=== PATIENT | female | born 1990 | race Caucasian/White ===

== ENCOUNTER → 2021-11-16 14:28 | Outpatient (CLI) | payer OTHER, MEDICAID, SELFPAY ==
--- NOTE | 2021-11-16 14:35 | DI.US.S_ITS ---
PROCEDURE: US OB <= 14 WEEKS FETUS INDICATIONS: INITIAL VIABILTY DATING OUTSIDE/PRIOR DATING DATA: Last menstrual period (LMP): 08/30/2021 LMP-based estimated date of delivery (JEFF): 06/06/2022. First dating scan (date and location): 11/16/2021. Estimated date of delivery (JEFF) from first dating scan: 07/09/2022. The calculations are made using the ultrasound JEFF of 07/09/2022. TECHNIQUE: Real-time scanning was performed of the fetus and maternal pelvic organs, with image documentation. Endovaginal scanning was also performed to better visualize the fetus and maternal ovaries. COMPARISON: None. FINDINGS: Embryo: Lynndyl-rump length measures 0.6 cm corresponding to 6 weeks 3 days. Small perigestational sac bleed site measuring 0.6 x 0.5 x 0.5 cm Heart rate: 119 beats per minute. Maternal organs: Ovaries within normal limits, with right corpus luteal cyst. IMPRESSION: 6 week 3 day single living IUP and small perigestational sac bleed site. We strive to produce accurate, complete, and clear reports of imaging services. To assist us in improving patient care, this report was composed using standard report templates and voice recognition software. Therefore, it may contain abnormal punctuation, insertions and/or omissions. Occasional wrong-word or sound-alike substitutions may occur. Though we review the report and make efforts to correct it, we do recommend that the report be read carefully in proper context to recognize any text inaccuracies. Dictated by: Foreign ROBERTO Interpreted: Sadi Field MD on 11/16/2021 at 15:45 Transcribed by: KAI on 11/16/2021 at 15:46 Approved by: Sadi Field M.D. on 11/16/2021 at 17:31
[2021-11-16 16:48] LABS: Add Manual Diff / Slide Review NO; Basophils Absolute Auto 0 /uL (0-100); Basophils Percent Auto 0.4 % (0-2); Eosinophils Absolute Auto 100 /uL (0-450); Hemoglobin 13.5 g/dL (12.0-16.0); Lymphocytes Absolute Auto 2100 /uL (1100-4500); Lymphocytes Percent Auto 20.8 % (25-40); Mean Corpuscular HGB Conc 35.4 % (30-36); Mean Corpuscular Hemoglobin 34.2 PG (26-34); Mean Corpuscular Volume 96.4 fL (80-100); Monocytes Absolute Auto 900 /uL (0-900); Monocytes Percent Auto 8.8 % (3-14); Neutrophils Absolute Auto 7000 /uL (1500-7000); Platelet Count 248 X10^3/uL (150-400); Red Blood Cell Count 3.94 X10^6/uL (4.0-5.2); Red Cell Distribution Width 12.6 % (11.6-14.8); White Blood Cell Count 10.1 X10^3/uL (4.5-11.0)
[2021-11-16 18:08] LABS: Appearance Urine UA CLEAR; Bilirubin Urine UA NEGATIVE (NEGATIVE); Color Urine UA YELLOW; Glucose Urine UA NEGATIVE (Negative); Ketones Urine UA NEGATIVE (NEGATIVE); Leukocyte Esterase Urine UA NEGATIVE (NEGATIVE); Nitrite Urine UA NEGATIVE (Negative); Occult Blood Urine UA NEGATIVE (Negative); Protein Urine UA NEGATIVE (Negative); Specific Gravity Urine UA <=1.005 (1.000-1.035); Urobilinogen Urine UA 0.2 E.U./dL (0.2)
[2021-11-17 08:14] LABS: RPR Screen Non Reactive (Non Reactive); Varicella IgG Antibody 979 index (Immune >165)
[2021-11-17 16:23] LABS: HIV 1 & 2 Ab/Ag 4th Gen Combo NEGATIVE (NEGATIVE); Hep C Virus Ab w/Reflex Quant NEGATIVE s/c (NEGATIVE); Hepatitis B Surface Antigen NEGATIVE s/c (NEGATIVE); Rubella Antibody IgG 48.1 IU/mL (>15)
== END ==
PROVIDERS: PCP Specialist; Referring Provider Family Medicine; Visit Provider Family Medicine
DX: O46.8X1 Other antepartum hemorrhage, first trimester (principal); Z3A.01 Less than 8 weeks gestation of pregnancy
CPT/HCPCS: 36415; 76801; 76817; 80055; 81003; 86787; 86803; 86850; 86900; 86901; 87086; 87389

== ENCOUNTER → 2021-12-10 09:49 | Outpatient (CLI) | payer OTHER, MEDICAID, SELFPAY ==
[2021-12-10 14:03] LABS: Urine N gonorrhoeae NOT DETECTED
[2021-12-10 15:34] LABS: Urine Chlamydia NOT DETECTED
== END ==
PROVIDERS: PCP Specialist; Visit Provider Specialist
DX: Z34.81 Encounter for supervision of other normal pregnancy, first trimester (principal); Z3A.09 9 weeks gestation of pregnancy
CPT/HCPCS: 87491; 87591

== ENCOUNTER → 2022-06-02 12:16 | Outpatient (CLI) | payer OTHER, MEDICAID, SELFPAY ==
--- NOTE | 2022-06-02 12:17 | DI.US.S_ITS ---
PROCEDURE: US OB LIMITED INDICATIONS: LOW-LYING PLACENTA OUTSIDE/PRIOR DATING DATA: Last menstrual period (LMP): 08/02/2021. LMP-based estimated date of delivery (JEFF): 06/06/2022. First dating scan (date and location): 11/16/2021. Estimated date of delivery (JEFF) from first dating scan: 07/09/2022. TECHNIQUE: Real-time scanning was performed of the fetus, with image documentation. Endovaginal scanning: Performed. COMPARISON: [facility], US, US OB >= 14 WEEKS FETUS, 04/07/2022, 9:29. FINDINGS: A single living intrauterine gestation is present. Presentation: Vertex. Placenta: Placental position is posterior. The placenta is low lying, 1.7 cm from the internal os. Amniotic fluid index: 17.1 cm, normal range is 5-24 cm. Single deepest vertical pocket is 5.0 cm. heart rate: 132 beats per minute. Maternal cervical canal: 4.3 cm long. Normal lower limit is 2.5 cm. Estimated gestational age from initial scan: 34 weeks 5 days. IMPRESSION: 1. Single living intrauterine in vertex presentation. 2. Low lying posterior placenta, placental edge 1.7 cm from the internal os of the cervix. Dictated by: Ehsan Cordova M.D. on 06/02/2022 at 17:48 Approved by: Ehsan Cordova M.D. on 06/02/2022 at 17:54
== END ==
PROVIDERS: PCP Specialist; Referring Provider Specialist; Visit Provider Specialist
DX: O44.43 Low lying placenta NOS or without hemorrhage, third trimester (principal); Z3A.34 34 weeks gestation of pregnancy
CPT/HCPCS: 76815; 76817

== ENCOUNTER → 2022-06-16 12:33 | Outpatient (CLI) | payer OTHER, MEDICAID, SELFPAY ==
[2022-06-17 10:19] LABS: Strep Grp B PCR NEG for Grp B Strep
== END ==
PROVIDERS: PCP Specialist; Visit Provider Obstetrics & Gynecology
DX: Z34.83 Encounter for supervision of other normal pregnancy, third trimester (principal); Z3A.36 36 weeks gestation of pregnancy
CPT/HCPCS: 87653

== ENCOUNTER → 2022-06-19 10:26 | Outpatient (CLI) | payer OTHER, MEDICAID, SELFPAY ==
--- NOTE | 2022-06-20 22:26 | P.HPOB_ITS ---
OB HPI Date/Time Date of admission: 06/20/22 Date Patient Seen: 06/20/22 Time Patient Seen: 22:27 History of Present Condition Chief complaint: LAB EO : 2 Para: 1 Estimated Date of Delivery: 06/08/22 Estimated Gestational Age (weeks): 37 Narrative: Sybil Guido is a 31 year old female at 37 weeks 2 days who had spontaneous rupture membranes this evening and was scheduled for a section for low-lying placenta Indications Operative indications ( section): placenta previa (Low lying placenta with positive rupture membranes) History of Present care: good care, initiated at week # (9), number of visits (11) and pounds weight gain (53) Dating criteria: based on 1st trimester US only Ultrasounds: normal mid trimester US Obstetrical complications: none Medical complications: none Preadmission Labs Blood type: O (+) positive -: Antibody screen: negative, GBS status: negative, HBsAG: negative, HIV: negative and RPR/VDLR: negative -: Chlamydia screen: not detected and Gonorrhea screen: not detected -: Rubella: immune and Varicella: immune HCAB: negative Quad screen: Normal 1 hr GTT: 138 Prior (ies) History: 03/16/2019 vaginal delivery female at 38 weeks measuring 7 lb 6 oz Evaluation Evaluation Baseline heart rate: 135 Variability: Moderate (11-25) monitor accelerations: Present Monitor Decelerations: Absent Contraction Frequency (minutes): 3 Uterine Contraction Intensity: Mild Category of Tracing: Reactive Status: Category l Comments: Grossly ruptured PFSH Medical History (Updated 04/07/22 @ 09:46 by Leyda Carrizales MD) Fibromyalgia Hiatal hernia Hyperemesis gravidarum Scoliosis Surgical History (Updated 11/23/21 @ 11:00 by Doreen Johnson, PLACIDO) H/O wisdom tooth extraction History of repair of hiatal hernia Family History (Updated 11/23/21 @ 11:03 by Doreen Johnson, RN) Mother Hypothyroid Father Hypertension Hyperlipidemia Cancer Grandmother Ovarian cancer Social History marital status: unmarried,living together number of children: 1 household members: significant other and children lives independently: Yes housing: house pets and animals: Yes (Dog, aware of toxo and gardening) 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) occupational status: employed current occupational exposures/hazards: No seatbelt use: always water heater temp set < 120 deg: Yes working smoke detector in home: Yes fire extinguisher in home: Yes carbon monox detector in home: Yes firearms in home: No do you feel safe at home: Yes Smoking Status: Never smoker (Never cigarettes) second hand exposure: No alcohol intake: former (Light when not ) substance use type: marijuana (Nausea, fibromyalgia) during the past year weight has: decreased > 10 lbs (with separation from former partner) well-balanced diet: daily or most days daily servings fruits/ve-4 caffeine: Yes (decreasing) Type(s) of exercise: walking Meds Home Medications and Allergies Home Medications Medication Instructions Recorded Confirmed Type mirtazapine 15 mg tablet 15 mg PO BEDTIME 11/23/21 06/16/22 History prenat.vits,christ,nnn-idos-kqrdx 1 tab PO DAILY 11/23/21 06/16/22 History lorazepam 0.5 mg tablet 0.25 mg PO BEDTIME PRN anxiety #15 05/07/22 06/16/22 Rx tabs hydroxyzine pamoate 25 mg capsule 25 mg PO QID PRN anxiety #60 caps 06/07/22 06/16/22 Rx Double electric breast pump #1 ea 06/09/22 06/16/22 Rx Allergies Allergy/AdvReac Type Severity Reaction Status Date / Time Opioids - Morphine Analogues Allergy Intermediate Hives Verified 06/16/22 11:08 latex AdvReac Mild Verified 06/16/22 11:08 Review of Systems Review of Systems Narrative: Patient with spontaneous rupture membranes. Minimal cramping. No fevers. Good movement. No headaches, scotomata, epigastric pain. OB Exam Narrative Exam Narrative: Blood pressure 117/66, pulse of 82, temperature 36.8? HEENT exam within normal limits. Lungs are clear to auscultation percussion. Heart is regular rate and rhythm no S3-S4 or murmurs. Abdomen is gravid and nontender. Fetus is vertex. Extremities without edema and nontender. Objective Labs Labs: Laboratory Results - last 24 hr 06/19/22 10:39 Bile Acids 4.0 Assessment and Plan Assessment and Plan Assessment and Plan narrative: 37 week 2 day gestation with spontaneous rupture membranes and known low lying placenta who had a planned section. Primary low-transverse section Time Spent with Patient Total time spent with greater than 50% in coordination of care (as documented) at patient's floor/unit and/or counseling patient:: less than 15 minutes
--- NOTE | 2022-06-20 22:33 | PM.PREOP ---
Pre-operative Note COVID-19 COVID-19 status: Negative Result date/Date tested (Pos, Neg/Pending): 06/20/22 Criteria for continued procedure: Possibility delay results in more complex future surgery or treatment Interval Note History & Physical reviewed/Exam performed by Physician: Yes Changes to H&P: No
--- NOTE | 2022-06-22 16:00 | PM.OBDS.1 ---
Discharge Providers Provider Date of admission: 06/20/22 Discharge Date: 06/22/22 Primary care physician: Shaila Lovett MD Discharge provider: Daniella Connor MD Summary Hospital Course Date Patient Seen: 06/22/22 Time Patient Seen: 08:03 Diagnoses: 37 week , delivered spontaneous rupture membranes low-lying placenta s/p delivery by primary lower transverse section Hospital Course: 31 year old female admitted at 37 weeks 2 days with spontaneous rupture membranes. She was scheduled for a primary section for low-lying placenta and OR team called to proceed with section at this time. She underwent a primary section without complications by Dr. Carrizales. See operative report for details. A baby boy weighing 7 lb 13 oz was delivered with Apgars of 9 and 9. She had a normal postoperative course, meeting normal postoperative parameters. She was doing well postop day 1.5 and desired discharge to home. Baby was doing well 2 and was ready for discharge. She was without problems. She was discharged home with a follow-up appointment scheduled for Aquacel removal in 1 week. She was discharged on oxycodone short-term for incisional discomfort. See separately filed discharge medication list Peripartum Data Infant Delivery Method: Section Procedures: Primary lower transverse section spinal anesthesia complications: none 1: Gender: Male Disposition of : home Discharge Diagnosis (1) Delivery by section using transverse incision of lower segment of uterus: Status: Acute (2) Low lying placenta nos or without hemorrhage, third trimester: Status: Acute Status at Discharge Cognitive/behavioral status at discharge: oriented Functional status at discharge: independent ambulation Overall status at discharge: patient is progressing back to baseline Time Spent with Patient Time attestation: Total time spent providing and/or coordinating discharge services: Time spent: Less than 30 minutes Exam Vital Signs (past 8 hours): See OBtrix for VS: Afebrile, BP normal Narrative Exam Narrative: General:? Well-appearing female Pulmnary: Normal respiratory effort Abdomen:? Soft, nontender except expected chico-incisional discomfort,? nondistended.? Dresssign dry, intact. Fundus firm, nontender Extremities:? Trace pedal edema Discharge Plan Discharge Plan Patient Disposition: Home Discharge Comment: s/p primary section Discharge Med Rec/Prescriptions Prescriptions: No Action lorazepam 0.5 mg tablet 0.25 mg PO BEDTIME PRN (Reason: anxiety) Qty: 3 0RF dextroamphetamine-amphetamine [Adderall XR] 30 mg capsule,extended release 24hr 30 mg PO DAILY lorazepam [Ativan] 1 mg tablet 1 mg PO BID PRN gabapentin 800 mg tablet 800 mg PO BEDTIME Qty: 30 1RF norethindrone-e.estradiol-iron [Loestrin Fe 11/19 (28-Day)] 1 mg-20 mcg (21)/75 mg (7) tablet 1 tab PO DAILY Qty: 84 3RF Discharge Health Status Multidrug resistant organism: No MDRO Visit Report/Discharge Packet Referrals: Shaila Lovett MD [Primary Care Provider] - Discharge Data Primary Care Provider: Shaila Lovett Attending Provider: Leyda Carrizales
== END ==
PROVIDERS: PCP Specialist; Referring Provider Specialist; Visit Provider Specialist
DX: O99.713 Diseases of the skin and subcutaneous tissue complicating pregnancy, third trimester (principal); L29.9 Pruritus, unspecified
CPT/HCPCS: 36415; 82239

== ENCOUNTER 2022-06-20 22:15 | Inpatient (IN) | payer OTHER, MEDICAID, SELFPAY ==
[2022-06-20] MEDS: LACTATED RINGERS 1,000 ML 100 ML IV (23:00)
[2022-06-20 23:10] LABS: Add Manual Diff / Slide Review NO; Basophils Absolute Auto 200 /uL (0-100); Basophils Percent Auto 1.5 % (0-2); Eosinophils Absolute Auto 100 /uL (0-450); Eosinophils Percent Auto 1.3 % (2-4); Hematocrit 29.8 % (36-46); Hemoglobin 10.2 g/dL (12.0-16.0); Lymphocytes Absolute Auto 2500 /uL (1100-4500); Mean Corpuscular HGB Conc 34.3 % (30-36); Mean Corpuscular Hemoglobin 31.1 PG (26-34); Mean Corpuscular Volume 90.6 fL (80-100); Monocytes Absolute Auto 1100 /uL (0-900); Monocytes Percent Auto 10.7 % (3-14); Neutrophils Absolute Auto 6500 /uL (1500-7000); Neutrophils Percent Auto 62.5 % (50-75); Platelet Count 224 X10^3/uL (150-400); Red Blood Cell Count 3.29 X10^6/uL (4.0-5.2); Red Cell Distribution Width 14.5 % (11.6-14.8); White Blood Cell Count 10.4 X10^3/uL (4.5-11.0)
[2022-06-20] MEDS: CEFAZOLIN 2 GM/100 ML PREMIX 100 ML IV (23:25)
[2022-06-20] MEDS: TRANEXAMIC ACID 1,000 MG in SODIUM CHLORIDE 0.9% 100 ML 200 MG IV (23:35)
--- NOTE | 2022-06-20 23:36 | SUR.OPER ---
FHT's 145. TOB live male @2150. Cord blood and placenta to OB with OB RN
[2022-06-21] VITALS (10 sets, daily range): BP systolic 105–117; BP diastolic 66–74; PULSE 67–81; RESP 16–28; TEMP 36.5–36.9; O2SAT 98–99
--- NOTE | 2022-06-21 00:04 | SUR.OPER ---
Supine on Padded OR bed, head on pillow, safety belt at thigh, arms secured on padded arm boards at <90 degrees abduction. Bump under right buttock. Legs uncrossed with pillow under knees, gel pad to heels, tape over blanket to lower legs.
[2022-06-21] MEDS: LACTATED RINGERS 1,000 ML 100 ML IV ×3 (00:08→09:58)
--- NOTE | 2022-06-21 00:25 | PM.OBCS.1 ---
Operative Date/Time/Diagnoses Date of procedure: 06/21/22 Time of procedure: 00:25 Pre-op diagnosis: 37 week gestation with spontaneous rupture membranes in low lying placenta Post-op diagnosis: same Procedure & Clinicians Procedure: Primary low-transverse section Same procedure as scheduled: Yes Indications: Spontaneous rupture membranes at 37 weeks low lying placenta Surgeon: Leyda Carrizales Click Yes if Unassisted: Yes Anesthesia Type: Spinal Operative Notes Findings: Normal tubes, ovaries, uterus. Viable male infant weighing 7 lb 13 oz with Apgars of 9 and 9 Closure Type: primary Specimen(s): cord blood Intraoperative meds administered: Ketorolac, Pitocin and Tranexamic acid Applied: Catheter (Steele) Estimated Blood Loss (mL): 500 Blood products transfused: none Procedure in detail: The patient was brought to the operating room where she underwent a spinal for anesthesia. She was placed in a supine position with a left lateral tilt. A Steele catheter was placed. Pulsatile stockings were placed and functional throughout the case. 2 g of Ancef were given IV prior to the incision. Warming was in place. The patient was prepped and draped in usual sterile fashion. A low transverse incision was made with a scalpel and the incision was carried down to the fascial layer which was incised transversely with scissors. The midline attachments are superiorly and inferiorly. Some bleeding was controlled Bovie. The rectus muscles were in the midline and the peritoneal incision was made with no damage to internal structures. The peritoneum was incised and superiorly and inferiorly. The incision was stretched with the surgeon and educational assistant teacher placing traction. Bladder blade was placed and a bladder flap was developed and the bladder held away from the lower uterine segment. An incision was made in the uterus with the scalpel and the incision was extended with stretching. The head was elevated out of the abdomen and with fundal pressure by the educational assistant teacher the baby was delivered. The infant was bulb suctioned for clear fluid and handed off to the warmer. Cord blood was collected. The placenta delivered spontaneously with traction. The uterus was cleaned with clean laps. The uterine incision was closed in 2 layers of 0 chromic suture the first a running locking layer the second an imbricating layer. The bladder peritoneum was repaired with 2-0 Vicryl suture. The gutters were cleaned of any remaining fluids and ovaries and tubes were observed to be normal. Adequate hemostasis was noted. The perineum was closed with 2-0 Vicryl suture. The fascia layer was closed with 0 Vicryl suture with 2 stitches. The incision was irrigated and adequate hemostasis noted. The incision was closed with interrupted 3-0 Vicryl sutures and then a subcuticular stitch of 4-0 Vicryl suture. Steri-Strips were placed. The uterus was massaged to remove any clots. The patient went to recovery room in good condition. Counts of instruments and sponges were correct. Complications: none Holland Baby 1: Gender: Male Presentation: vertex Position: Left Occiput Transverse Placental Delivery Description: Expressed Cord Vessel Description: 3 Vessels score (1 min): 9 score (5 min): 9 weight: 7 lb 13 oz Post-operative Condition: stable Disposition: other ( Center) Aftercare: routine postop
--- NOTE | 2022-06-21 00:31 | SUR.PHASEI ---
Pt awake on arrival, when not spoken to falls a sleep, I am so tired. Report called.
--- NOTE | 2022-06-21 00:49 | SUR.PHASEI ---
Pt transferred to room 4, left with PLACIDO Zaragoza in stable condition.
[2022-06-21] MEDS: ACETAMINOPHEN 325 MG TABLET 650 MG PO ×4 (02:55→22:25)
[2022-06-21] MEDS: OXYCODONE IR 5 MG TABLET PO ×4 (05:18→22:25)
[2022-06-21 06:51] LABS: Add Manual Diff / Slide Review NO; Basophils Absolute Auto 0 /uL (0-100); Basophils Percent Auto 0.3 % (0-2); Eosinophils Absolute Auto 0 /uL (0-450); Eosinophils Percent Auto 0.1 % (2-4); Hematocrit 27.2 % (36-46); Hemoglobin 9.3 g/dL (12.0-16.0); Lymphocytes Absolute Auto 1600 /uL (1100-4500); Lymphocytes Percent Auto 10.6 % (25-40); Mean Corpuscular HGB Conc 34.1 % (30-36); Mean Corpuscular Hemoglobin 30.8 PG (26-34); Mean Corpuscular Volume 90.4 fL (80-100); Monocytes Absolute Auto 1300 /uL (0-900); Monocytes Percent Auto 8.6 % (3-14); Neutrophils Absolute Auto 12200 /uL (1500-7000); Neutrophils Percent Auto 80.4 % (50-75); Platelet Count 216 X10^3/uL (150-400); Red Blood Cell Count 3.01 X10^6/uL (4.0-5.2); Red Cell Distribution Width 14.3 % (11.6-14.8); White Blood Cell Count 15.2 X10^3/uL (4.5-11.0)
[2022-06-21] MEDS: KETOROLAC 30 MG/ML VIAL IV ×4 (08:04→20:10)
[2022-06-21] MEDS: DOCUSATE 100 MG CAPSULE 200 MG PO (09:26)
[2022-06-21] MEDS: FERROUS SULFATE 325 MG TABLET PO (09:26)
--- NOTE | 2022-06-21 09:29 | PM.OBPN.1 ---
Subjective - OB Subjective Patient comments: no complaints, incisional pain (Receiving oxycodone now) and tolerating diet (Some initial nausea this a.m., improved after Zofran. Tolerating small amounts of solid food) baby status: doing well feeding status: exclusively breast feeding Date Patient Seen: 06/21/22 Time Patient Seen: 09:29 Exam Vital Signs (past 8 hours): - 06/21/22 08:04 Temperature 98.0 F Oxygen Delivery Method Room Air Narrative Exam Narrative: General: Well-appearing female Abdomen: Soft, nontender, nondistended. Fundus @U, firm, nontender Extremities: Trace pedal edema Objective Labs Result Diagrams: 06/21/22 06:40 Labs: Laboratory Results - last 24 hr 06/20/22 06/20/22 06/21/22 22:45 22:45 06:40 WBC 10.4 15.2 H RBC 3.29 L 3.01 L Hgb 10.2 L 9.3 L Hct 29.8 L 27.2 L MCV 90.6 90.4 MCH 31.1 30.8 MCHC 34.3 34.1 RDW 14.5 14.3 Plt Count 224 216 Neut % (Auto) 62.5 80.4 H Lymph % (Auto) 24.0 L 10.6 L [place] % (Auto) 10.7 8.6 Eos % (Auto) 1.3 L 0.1 L Baso % (Auto) 1.5 0.3 Neut # (Auto) 6500 05087 H Lymph # (Auto) 2500 1600 [place] # (Auto) 1100 H 1300 H Eos # (Auto) 100 0 Baso # (Auto) 200 H 0 Blood Type O Positive Antibody Screen Negative Crossmatch See Detail Assessment & Plan Plan day: 1 plan OB: routine postop care Comments: Discontinue Steele later this afternoon Continue current post-op care Time Spent With Patient Time: Total time spent is greater than 50% in coordination of care (as documented) at patient's floor/unit and/or counseling patient: Time with patient: less than 15 minutes
[2022-06-22] MEDS: IBUPROFEN 600 MG TABLET PO ×3 (02:21→15:35)
[2022-06-22] MEDS: ACETAMINOPHEN 325 MG TABLET 650 MG PO ×2 (06:03→12:33)
[2022-06-22] MEDS: OXYCODONE IR 5 MG TABLET PO ×3 (06:04→15:36)
--- NOTE | 2022-06-22 08:02 | P.PNOB_ITS ---
Subjective - OB Subjective Patient comments: incisional pain (Controlled with the oxycodone), tolerating diet and flatus present [place] baby status: doing well [place] feeding status: exclusively breast feeding Date Patient Seen: 06/22/22 Time Patient Seen: 08:03 Exam Vital Signs (past 8 hours): Oxygen Delivery Method Room Air Narrative Exam Narrative: General: Well-appearing female Abdomen: Soft, nontender except expected chico-incisional discomfort, nondistended. Dresssign dry, intact. Fundus firm, nontender Extremities: Trace pedal edema Objective Labs Result Diagrams: 06/21/22 06:40 Assessment & Plan Plan day: 2 plan OB: discharge home Comments: POD 1.5 Doing well. Baby is doing well. She desires discharge home today. Will discharge home. Baby is ready for discharge as well and was discharged Time Spent With Patient Time: Total time spent is greater than 50% in coordination of care (as documented) at patient's floor/unit and/or counseling patient: Time with patient: 15-24 minutes
[2022-06-22] MEDS: DOCUSATE 100 MG CAPSULE 200 MG PO (09:00)
[2022-06-22 09:37] VITALS: TEMP 36.8
[2022-06-22 11:03] VITALS: TEMP 36.8
[2022-06-22 12:33] VITALS: TEMP 36.9
[2022-06-22 15:35] VITALS: TEMP 36.7
[2022-06-22 15:36] VITALS: TEMP 36.8
[2022-06-22 16:11] VITALS: BP 107/69; PULSE 75; RESP 18; TEMP 36.7
== END 2022-06-22 17:40 | disposition home or self-care (01) | DRG 540 ==
PROVIDERS: Admitting Provider Specialist; PCP Specialist; Referring Provider Specialist; Visit Provider Specialist
PROC: (CPT 59514; principal; 2022-06-20 22:30)
DX: O44.43 Low lying placenta NOS or without hemorrhage, third trimester (principal); O42.92 Full-term premature rupture of membranes, unspecified as to length of time between rupture and onset of labor; Z3A.37 37 weeks gestation of pregnancy; Z37.0 Single live birth; O99.713 Diseases of the skin and subcutaneous tissue complicating pregnancy, third trimester; L29.9 Pruritus, unspecified
CPT/HCPCS: 36415; 59050; 59510; 82239; 85025; 86850; 86900; 86901; G0379; J0690; J1885; J2250; J2405; J2590; J3010

== ENCOUNTER 2023-09-19 10:55 | Day surgery (SDC) | payer OTHER, MEDICAID, SELFPAY ==
[2023-09-19 11:27] VITALS: BP 106/71; PULSE 59; RESP 18; TEMP 36.9; O2SAT 97
[2023-09-19] MEDS: LACTATED RINGERS 1,000 ML 21 ML IV (11:34)
--- NOTE | 2023-09-19 11:37 | P.HPOB_ITS ---
History of Present Illness History of Present Illness Narrative: Sybil Guido is a 33 year old female with retained pieces of IUD who presents for a diagnostic hysteroscopy with removal of pieces of IUD. FOR[facility]LY [facility], [facility] Medical History (Updated 06/21/22 @ 00:18 by Leyda Carrizales MD) Hiatal hernia Scoliosis Fibromyalgia Hyperemesis gravidarum Surgical History (Updated 11/23/21 @ 11:00 by Doreen Johnson, RN) H/O wisdom tooth extraction History of repair of hiatal hernia Family History (Updated 11/23/21 @ 11:03 by Doreen Johnson, RN) Mother Hypothyroid Father Hypertension Hyperlipidemia Cancer Grandmother Ovarian cancer Social History marital status: unmarried,living together number of children: 1 household members: significant other and children lives independently: Yes housing: house pets and animals: Yes (Dog, aware of toxo and gardening) 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) occupational status: employed current occupational exposures/hazards: No seatbelt use: always water heater temp set < 120 deg: Yes working smoke detector in home: Yes fire extinguisher in home: Yes carbon monox detector in home: Yes firearms in home: No do you feel safe at home: Yes Smoking Status: Former smoker second hand exposure: No alcohol intake: current substance use type: marijuana (Nausea, fibromyalgia) during the past year weight has: decreased > 10 lbs (with separation from former partner) well-balanced diet: daily or most days daily servings fruits/ve-4 caffeine: Yes (decreasing) Type(s) of exercise: walking Meds Home Medications and Allergies Home Medications Medication Instructions Recorded Confirmed Type dextroamphetamine-amphetamine ER 30 mg PO DAILY 08/04/22 09/19/23 History 30 mg 24hr capsule,extend release (Adderall XR) gabapentin 800 mg tablet 800 mg PO BEDTIME #30 tabs 08/04/22 09/19/23 Rx lorazepam 1 mg tablet (Ativan) 1 mg PO BID PRN Anxiety 08/04/22 09/19/23 History norethindrone 1 mg-ethinyl 1 tab PO DAILY #84 tabs 08/04/22 09/19/23 Rx estradiol 20 mcg (21)-iron 75 mg (7) tablet (Loestrin Fe 11/19 (28-Day)) citalopram 10 mg tablet 20 mg PO ONCE PM 09/19/23 09/19/23 History lorazepam 0.5 mg tablet 0.5 mg PO BEDTIME PRN anxiety 09/19/23 09/19/23 History Allergies Allergy/AdvReac Type Severity Reaction Status Date / Time morphine AdvReac Intermediate ITCHING Verified 09/19/23 11:14 adhesive AdvReac Mild Verified 09/19/23 11:14 Exam Vital Signs (past 8 hours): - 09/19/23 11:27 Temperature 98.4 F Pulse Rate 59 L Respiratory Rate 18 Blood Pressure 106/71 Pulse Oximetry 97 Oxygen Delivery Method Room Air Oxygen Delivery Method Room Air Narrative Exam Narrative: HEENT: No thyromegaly, no anterior cervical or supraclavicular lymphadenopathy. Lungs:Clear to auscultation bilaterally, no wheezes. Cardiovascular: Regular rate and rhythm, no murmurs, rubs, or gallops. Abdomen: No scars. No hepatosplenomegaly. No masses palpable. External genitalia: Normal Vagina: Normal Cervix: Normal Bimanual exam: 6 Week size anteverted uterus. Mobile. Extremities: No edema Objective Labs Labs: CT scan showing retained foreign bodies measuring 7 and 8 mm. These originated in the endometrium and extend into the myometrium. Assessment & Plan Assessment & Plan narrative: Assessment: 33-year-old 2 para 2 with retained arms of IUD seen on CT scan Plan: Operative hysteroscopic removal of retained pieces of IUD The risks, benefits, and alternatives to the procedure were explained to the patient. The risks including bleeding, infection, and uterine perforation. She understands these risks and agrees to proceed. A full par Q was held and consent form was signed. Time Spent With Patient Time with patient: less than 30 minutes
--- NOTE | 2023-09-19 11:43 | PM.PREOP ---
Pre-operative Note Interval Note History & Physical reviewed/Exam performed by Physician: Yes Changes to H&P: No H&P completed within 30 days and has changed as indicated here:: 09/19/23
--- NOTE | 2023-09-19 12:12 | SUR.OPER ---
Lithotomy on padded OR bed, head on pillow, arms secured on padded arm boards at <90 degrees abduction. Legs secured in padded yellow fins stirrups.
[2023-09-19 12:35] VITALS: BP 128/83; PULSE 77; RESP 18; TEMP 36.6; O2SAT 98
--- NOTE | 2023-09-19 12:35 | PM.GYNOP.1 ---
Operative Date/Time/Diagnoses Date of procedure: 09/19/23 Time of procedure: 12:35 Pre-op diagnosis: Retained pieces of IUD Post-op diagnosis: same Procedure & Clinicians Procedure: Procedures Operation Date: 09/19/23 12:15 Actual Procedure Side Surgeon p diagnostic hysteroscopy Julita Corona MD Indications: 33 year old with retained pieces of IUD by CT scan Surgeon: Julita Corona Anesthesia Type: General (LMA) Operative Notes Findings: 7 week size anteverted uterus No IUD pieces visualized Closure Type: not applicable Specimen(s): none Estimated blood loss (mL): 3 Blood products transfused: none Procedure in detail: After informed consent was obtained, the patient was taken to the operating room where she was placed in the dorsal supine position. After adequate LMA general anesthesia was achieved, she was placed in the dorsal lithotomy position, and prepped and draped in the usual sterile fashion. A time-out was performed. A bivalve speculum was placed into the vagina and the anterior lip of the cervix was grasped with a single-tooth tenaculum. The cervical os was sequentially dilated to the #8 Hegar dilator. The hysteroscope pass easily into the endometrial cavity. Both fallopian tube ostia were observed. There were no pieces of the IUD visible in the endometrial or endocervical cavity. The hysteroscope was removed. The single-tooth tenaculum was removed from the anterior lip of the cervix. The bivalve speculum was removed from the vagina. Complications: none Post-operative Condition: stable Disposition: PACU Plan for aftercare: Home after recovery
[2023-09-19 12:40] VITALS: BP 112/71; PULSE 79; RESP 19; O2SAT 98
[2023-09-19 12:45] VITALS: BP 109/72; PULSE 96; RESP 17; O2SAT 98
[2023-09-19 13:05] VITALS: BP 119/64; PULSE 90; RESP 17; TEMP 37.2; O2SAT 100
== END 2023-09-19 13:10 | disposition home or self-care (01) ==
PROVIDERS: PCP Specialist; Referring Provider Obstetrics & Gynecology; Visit Provider Obstetrics & Gynecology
PROC: 0UDB8ZZ Extraction of Endometrium, Via Natural or Artificial Opening Endoscopic (ICD-10-PCS; CPT 58558; principal; 2023-09-19 12:15)
DX: Z30.432 Encounter for removal of intrauterine contraceptive device (principal)
CPT/HCPCS: 58555; J1100; J1885; J2250; J2405; J2704; J3010

== ENCOUNTER → 2023-11-21 09:56 | Outpatient (CLI) | payer OTHER, MEDICAID, SELFPAY | PROVIDERS: PCP Specialist; Referring Provider Student in an Organized Health Care Education/Training Program; Visit Provider Student in an Organized Health Care Education/Training Program | DX: J00 Acute nasopharyngitis [common cold] (principal); Z87.891 Personal history of nicotine dependence; J98.8 Other specified respiratory disorders | CPT/HCPCS: 94060; 94726; 94729 ==